=== PATIENT | male | born 1955 | race Caucasian/White ===

== ENCOUNTER 2021-12-22 18:19 | Emergency (ER) | payer MEDICARE, SELFPAY ==
--- NOTE | ~2021-12-22 | CT_ITS ---
EXAMINATION: CT HEAD WITHOUT CONTRAST CLINICAL INFORMATION: Altered mental status COMPARISON: 03/26/2019 TECHNIQUE: Contiguous axial imaging was performed from the skull base to vertex without intravenous administration of contrast. This CT examination was performed using dose optimization techniques as appropriate, variously including the following: *Automated exposure control *Adjustment of mA and/or kV according to patient size (this includes techniques or standardized protocols for targeted exams where dose is matched to indication/reason for exam; i.e. extremities or head) *Use of iterative reconstruction technique DLP: 777 mGy-cm FINDINGS: There is no evidence of acute intracranial hemorrhage or territorial infarction. No abnormal mass effect or midline shift is seen. Garcia to white matter differentiation is well preserved. No extra-axial fluid collections are identified. The ventricles are normal in size. 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 The osseous structures and soft tissues are normal. The mastoid air cells and visualized portions of the paranasal sinuses are well aerated. CT/CT head/brain wo con IMPRESSION: No acute intracranial pathology.
--- NOTE | 2021-12-22 18:22 | ED_ITS ---
HPI - Altered Mental Status General Chief Complaint: General Medical <Mau Haley MD - Last Filed: 12/22/21 20:25> Stated Complaint: confusion <Mau Haley MD - Last Filed: 12/22/21 20:25> Time Seen by Provider: 12/22/21 18:22 <Mau Haley MD - Last Filed: 12/22/21 20:25> Source: EMS <Mau Haley MD - Last Filed: 12/22/21 20:25> Mode of arrival: EMS <Mau Haley MD - Last Filed: 12/22/21 20:25> Limitations: altered mental status <Mau Haley MD - Last Filed: 12/22/21 20:25> History of Present Illness HPI narrative: patient is at a SNF and EMS was called for confusion. patient with a history of alcohol dementia and seizure. There was not witnessed seizure today. <Mau Haley MD - Last Filed: 12/22/21 20:25> MD complaint: altered mental status and confusion <Mau Haley MD - Last Filed: 12/22/21 20:25> Onset (ago): hour(s) <Mau Haley MD - Last Filed: 12/22/21 20:25> Timing confirmed by: other (senior care staff) <Mau Haley MD - Last Filed: 12/22/21 20:25> Severity: moderate <Mau Haley MD - Last Filed: 12/22/21 20:25> Context: alcohol abuse and seizure disorder <Mau Haley MD - Last Filed: 12/22/21 20:25> Related Data Allergies/Adverse Reactions: Allergies Allergy/AdvReac Type Severity Reaction Status Date / Time No Known Allergies Allergy Unverified 04/11/20 19:41 [No Known Allergies*] <Mau Haley MD - Last Filed: 12/22/21 20:25> Review of Systems Constitutional: Constitutional: Reports no additional constitutional complaints <Mau Haley MD - Last Filed: 12/22/21 20:25> Eyes: Eyes: Reports no additional eye complaints <Mau Haley MD - Last Filed: 12/22/21 20:25> ENT: Denies dizziness <Mau Haley MD - Last Filed: 12/22/21 20:25> Cardiovascular: Cardiovascular: Reports no additional cardiovascular complaints <Mau Haley MD - Last Filed: 12/22/21 20:25> Respiratory: Respiratory: Reports as per HPI <Mau Haley MD - Last Filed: 12/22/21 20:25> Gastrointestinal: Gastrointestinal: Reports no additional gastrointestinal complaints <Mau Haley MD - Last Filed: 12/22/21 20:25> Musculoskeletal: Musculoskeletal: Reports no additional musculoskeletal complaints <Mau Haley MD - Last Filed: 12/22/21 20:25> Integumentary/Breasts: Skin/Breast: Denies rash <Mau Haley MD - Last Filed: 12/22/21 20:25> Neurologic: Reports system reviewed and no additional complaints, except as documented, Denies dizziness and Denies Sensory deficit (Neuro) <Mau Haley MD - Last Filed: 12/22/21 20:25> Psychiatric: Psychiatric: Denies anxiety <Mau Haley MD - Last Filed: 12/22/21 20:25> [facility] Social History Social History: Social History Advance Directives: No Advance Directives Information Provided: No <Mau Haley MD - Last Filed: 12/22/21 20:25> Physical Exam ED Vital Signs: Vital Signs - 24 hr 12/22/21 18:34 12/22/21 19:01 12/22/21 20:41 Temperature 98.6 F 99.7 F 98.1 F Pulse Rate 70 73 72 Respiratory Rate 18 16 20 Blood Pressure 157/76 H 170/81 H 164/86 H Pulse Oximetry 97 93 95 BMI result Body Mass Index 25.8 <Mau Haley MD - Last Filed: 12/22/21 20:25> Vital Signs - 24 hr 12/22/21 18:34 12/22/21 19:01 12/22/21 20:41 Temperature 98.6 F 99.7 F 98.1 F Pulse Rate 70 73 72 Respiratory Rate 18 16 20 Blood Pressure 157/76 H 170/81 H 164/86 H Pulse Oximetry 97 93 95 BMI result Body Mass Index 25.8 <Lizbet Davis MD - Last Filed: 12/22/21 22:12> Const General: healthy appearing <Mau Haley MD - Last Filed: 12/22/21 20:25> Nutritional Appearance: average body habitus <Mau Haley MD - Last Filed: 12/22/21 20:25> Orientation/consciousness: oriented to person <Mau Haley MD - Last Filed: 12/22/21 20:25> Limitations: no limitations <Mau Haley MD - Last Filed: 12/22/21 20:25> HENMT Head: Yes normal to inspection <Mau Haley MD - Last Filed: 12/22/21 20:25> Ears: external ears normal <Mau Haley MD - Last Filed: 12/22/21 20:25> General nose exam: Normal external nose present <Mau Haley MD - Last Filed: 12/22/21 20:25> Mouth: Normal oral and palatal mucosa present and oropharynx normal <Mau Haley MD - Last Filed: 12/22/21 20:25> Throat: Yes posterior oropharynx normal <Mau Haley MD - Last Filed: 12/22/21 20:25> Eyes General: appearance normal, both eyes and all related structures <Mau Haley MD - Last Filed: 12/22/21 20:25> Neck Neck: Yes normal visual inspection <Mau Haley MD - Last Filed: 12/22/21 20:25> Chest Chest palpation & inspection: normal inspection of the chest <Mau Haley MD - Last Filed: 12/22/21 20:25> Resp Auscultation: clear to auscultation bilaterally <Mau Haley MD - Last Filed: 12/22/21 20:25> Cardio Jugular venous distension: no JVD <Mau Haley MD - Last Filed: 12/22/21 20:25> Rate: regular rate <Mau Haley MD - Last Filed: 12/22/21 20:25> Rhythm: regular rhythm <Mau Haley MD - Last Filed: 12/22/21 20:25> Heart sounds: S1 normal heart sound present and S2 normal heart sound present <Mau Haley MD - Last Filed: 12/22/21 20:25> GI Inspection: Yes normal to inspection <Mau Haley MD - Last Filed: 12/22/21 20:25> Palpation (GI): Soft to palpation, nontender and No hepatosplenomegaly present <Mau Haley MD - Last Filed: 12/22/21 20:25> Auscultation: normal bowel sounds <Mau Haley MD - Last Filed: 12/22/21 20:25> General: Yes no CVA tenderness <Mau Haley MD - Last Filed: 12/22/21 20:25> Back/Spine/Pelvis Back: no CVA tenderness <Mau Haley MD - Last Filed: 12/22/21 20:25> Skin General skin exam: no rashes or lesions noted <Mau Haley MD - Last Filed: 12/22/21 20:25> Neuro General: oriented to person <Mau Haley MD - Last Filed: 12/22/21 20:25> Cranial nerves: Yes CN's II-XII intact bilaterally <Mau Haley MD - Last Filed: 12/22/21 20:25> Motor exam (neuro): 5/5 motor strength present throughout <Mau Haley MD - Last Filed: 12/22/21 20:25> Sensory Exam: No Sensory deficit (Neuro) <Mau Haley MD - Last Filed: 12/22/21 20:25> Extrem General: Yes normal to inspection <Mau Haley MD - Last Filed: 12/22/21 20:25> Psych Other: patient knows he is in a hospital, does not know what facility he is in. States that he has had problems with his memory <Mau Haley MD - Last Filed: 12/22/21 20:25> Course Reevaluation(s) Reevaluation #1: head CT and labs normal, awaiting UA, patient appears to be improving will dc home if UA negative <Mau Haley MD - Last Filed: 12/22/21 20:25> Time: 20:25 <Mau Haley MD - Last Filed: 12/22/21 20:25> Reevaluation #2: Patient was signed out to me and on review of all investigations to inclu de urinalysis there are no acute findings to better explain patient's condition other than underlying alcohol dementia. Patient is otherwise hemodynamically stable for transportation back to the SNF. <Lizbet Davis MD - Last Filed: 12/22/21 22:12> Time: 22:10 <Lizbte Davis MD - Last Filed: 12/22/21 22:12> MDM - Altered Mental Status Lab Data Result diagrams: : 12/22/21 19:09 12/22/21 19:09 <Mau Haley MD - Last Filed: 12/22/21 20:25> Labs: Lab Results 12/22/21 12/22/21 12/22/21 Range/Units 19:09 19:09 21:56 WBC 9.6 (4.8-10.8) X10*3/uL RBC 4.73 (4.60-5.80) X10*6/uL Hgb 14.1 (14.0-18.0) g/dl Hct 42.2 (42.0-52.0) % MCV 89.2 (80.0-98.0) fL MCH 29.8 (27.0-33.0) pg MCHC 33.4 (31.0-36.0) g/dl RDW 11.7 (11.0-16.0) % Plt Count 286 (160-400) X10*3/uL MPV 10.1 (9.4-12.4) fL Immature Gran % (Auto) 0.3 (0.0-0.4) % Neut % (Auto) 81.3 H (45-73) % Lymph % (Auto) 14.1 L (20-40) % [place] % (Auto) 4.1 (2-11) % Eos % (Auto) 0.0 (0-4) % Baso % (Auto) 0.2 (0-2) % Lymph # (Auto) 1.4 (1.2-4.9) X10*3/uL [place] # (Auto) 0.4 (0.1-1.2) X10*3/uL Eos # (Auto) 0.0 (0.0-0.4) X10*3/uL Baso # (Auto) 0.0 (0.0-0.2) X10*3/uL Abs Immat Gran (auto) 0.03 (0.00-0.03) X10*3/uL Absolute Neuts (auto) 7.8 (2.0-8.3) x10*3/uL Absolute Nucleated RBC 0.000 (0.0-0.012) X10*3/uL Nucleated RBC % (auto) 0.0 (0.0-0.2) /100WBC Sodium 137 (135-145) mmol/L Potassium 4.6 (3.3-5.1) mmol/L Chloride 101 (96-108) mmol/L Carbon Dioxide 24 (22-29) mmol/L Anion Gap 17 (12-20) BUN 11 (9-16) mg/dL Creatinine 1.06 (0.5-1.4) mg/dL Estim Creat Clear Calc 65.4 Estimated GFR > 60 Random Glucose 156 H (60-115) mg/dL Calcium 9.9 (8.4-10.2) mg/dL Total Bilirubin 0.7 (0.0-1.0) mg/dL AST 22 (5-37) U/L ALT 24 (0-40) U/L Alkaline Phosphatase 63 (39-117) U/L Total Protein 6.9 (6.5-8.0) g/dL Albumin 4.1 (3.5-5.0) g/dL Urine Color YELLOW Urine Appearance CLEAR Urine pH 7.0 (5.0-8.0) Ur Specific [place] 1.010 (1.005-1.025) Urine Protein NEG (NEG-TRACE) MG/DL Urine Glucose (UA) NEG (NEG) MG/DL Urine Ketones NEG (NEG) MG/DL Urine Blood NEG (NEG) Urine Nitrite NEG (NEG) Ur Leukocyte Esterase NEG (NEG) <Mau Haley MD - Last Filed: 12/22/21 20:25> Lab Results 12/22/21 12/22/21 12/22/21 Range/Units 19:09 19:09 21:56 WBC 9.6 (4.8-10.8) X10*3/uL RBC 4.73 (4.60-5.80) X10*6/uL Hgb 14.1 (14.0-18.0) g/dl Hct 42.2 (42.0-52.0) % MCV 89.2 (80.0-98.0) fL MCH 29.8 (27.0-33.0) pg MCHC 33.4 (31.0-36.0) g/dl RDW 11.7 (11.0-16.0) % Plt Count 286 (160-400) X10*3/uL MPV 10.1 (9.4-12.4) fL Immature Gran % (Auto) 0.3 (0.0-0.4) % Neut % (Auto) 81.3 H (45-73) % Lymph % (Auto) 14.1 L (20-40) % [place] % (Auto) 4.1 (2-11) % Eos % (Auto) 0.0 (0-4) % Baso % (Auto) 0.2 (0-2) % Lymph # (Auto) 1.4 (1.2-4.9) X10*3/uL [place] # (Auto) 0.4 (0.1-1.2) X10*3/uL Eos # (Auto) 0.0 (0.0-0.4) X10*3/uL Baso # (Auto) 0.0 (0.0-0.2) X10*3/uL Abs Immat Gran (auto) 0.03 (0.00-0.03) X10*3/uL Absolute Neuts (auto) 7.8 (2.0-8.3) x10*3/uL Absolute Nucleated RBC 0.000 (0.0-0.012) X10*3/uL Nucleated RBC % (auto) 0.0 (0.0-0.2) /100WBC Sodium 137 (135-145) mmol/L Potassium 4.6 (3.3-5.1) mmol/L Chloride 101 (96-108) mmol/L Carbon Dioxide 24 (22-29) mmol/L Anion Gap 17 (12-20) BUN 11 (9-16) mg/dL Creatinine 1.06 (0.5-1.4) mg/dL Estim Creat Clear Calc 65.4 Estimated GFR > 60 Random Glucose 156 H (60-115) mg/dL Calcium 9.9 (8.4-10.2) mg/dL Total Bilirubin 0.7 (0.0-1.0) mg/dL AST 22 (5-37) U/L ALT 24 (0-40) U/L Alkaline Phosphatase 63 (39-117) U/L Total Protein 6.9 (6.5-8.0) g/dL Albumin 4.1 (3.5-5.0) g/dL Urine Color YELLOW Urine Appearance CLEAR Urine pH 7.0 (5.0-8.0) Ur Specific [place] 1.010 (1.005-1.025) Urine Protein NEG (NEG-TRACE) MG/DL Urine Glucose (UA) NEG (NEG) MG/DL Urine Ketones NEG (NEG) MG/DL Urine Blood NEG (NEG) Urine Nitrite NEG (NEG) Ur Leukocyte Esterase NEG (NEG) <Lizbet Davis MD - Last Filed: 12/22/21 22:12> Imaging Data CT scan - head: Radiologist's impression: FINDINGS: There is no evidence of acute intracranial hemorrhage or territorial infarction. No abnormal mass effect or midline shift is seen. Garcia to white matter differentiation is well preserved. No extra-axial fluid collections are identified. The ventricles are normal in size. 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 The osseous structures and soft tissues are normal. The mastoid air cells and visualized portions of the paranasal sinuses are well aerated. ? CT/CT head/brain wo con IMPRESSION: No acute intracranial pathology. <Mau Haley MD - Last Filed: 12/22/21 2 0:25> Discharge Plan Discharge Clinical Impression: Alcoholic dementia <Mau Haley MD - Last Filed: 12/22/21 20:25> Patient Disposition: er [facility] <Mau Haley MD - Last Filed: 12/22/21 20:25> Instructions: Dementia (ED) <Mau Haley MD - Last Filed: 12/22/21 20:25> Additional Instructions: Resume all home medications as prescribed. Return to the ER for worsening symptoms. <Mau Haley MD - Last Filed: 12/22/21 20:25> Referrals: Damon Muniz MD [Primary Care Provider] - <Mau Haley MD - Last Filed: 12/22/21 20:25>
[2021-12-22 18:34] VITALS: BP 157/76; BP 162/76; PULSE 70; RESP 18; TEMP 37; O2SAT 97; BMI 25.8
[2021-12-22 19:01] VITALS: BP 170/81; PULSE 73; RESP 16; TEMP 37.6; O2SAT 93
[2021-12-22 19:14] LABS: MANUAL DIFF FLAG NO
[2021-12-22 19:28] LABS: Basophils Percent Auto 0.2 % (0-2); Hematocrit 42.2 % (42.0-52.0); Hemoglobin 14.1 g/dl (14.0-18.0); Imm Gran Abs Auto 0.03 X10*3/uL (0.00-0.03); Imm Gran Pct Auto 0.3 % (0.0-0.4); Lymphocytes Absolute Auto 1.4 X10*3/uL (1.2-4.9); Lymphocytes Percent Auto 14.1 % (20-40); Mean Corpuscular HGB Conc 33.4 g/dl (31.0-36.0); Mean Corpuscular Hemoglobin 29.8 pg (27.0-33.0); Mean Corpuscular Volume 89.2 fL (80.0-98.0); Mean Platelet Volume 10.1 fL (9.4-12.4); Monocytes Absolute Auto 0.4 X10*3/uL (0.1-1.2); Monocytes Percent Auto 4.1 % (2-11); Neutrophils Absolute Auto 7.8 x10*3/uL (2.0-8.3); Neutrophils Percent Auto 81.3 % (45-73); Platelet Count 286 X10*3/uL (160-400); Red Blood Count 4.73 X10*6/uL (4.60-5.80); Red Cell Distribution Width 11.7 % (11.0-16.0); White Blood Count 9.6 X10*3/uL (4.8-10.8)
[2021-12-22 19:33] LABS: Alanine Aminotransferase 24 U/L (0-40); Albumin Level 4.1 g/dL (3.5-5.0); Alkaline Phosphatase 63 U/L (39-117); Anion Gap 17 (12-20); Aspartate Amino Transferase 22 U/L (5-37); Bilirubin Total 0.7 mg/dL (0.0-1.0); Blood Urea Nitrogen 11 mg/dL (9-16); Calcium 9.9 mg/dL (8.4-10.2); Carbon Dioxide 24 mmol/L (22-29); Chloride 101 mmol/L (96-108); Creatinine Clr Calc Pharmacy 65.4; Estimated Glomerular Filt Rate > 60; Glucose Random 156 mg/dL (60-115); Potassium 4.6 mmol/L (3.3-5.1); Sodium 137 mmol/L (135-145); Total Protein 6.9 g/dL (6.5-8.0)
[2021-12-22 20:41] VITALS: BP 164/86; PULSE 72; RESP 20; TEMP 36.7; O2SAT 95
[2021-12-22 22:05] LABS: Appearance Urine CLEAR; Color Urine YELLOW; Glucose Urine UA NEG (NEG); Leukocyte Esterase Urine NEG (NEG); Nitrite Urine NEG (NEG); Urine Blood NEG (NEG); Urine Ketones NEG (NEG); Urine Protein NEG (NEG-TRACE)
--- NOTE | 2021-12-22 23:55 | PC.NURSE ---
Nursing report given to staff member who answered the phone at [facility]. who verbalized an understanding of the [patient returning.
== END 2021-12-22 23:59 | disposition skilled nursing facility (03) ==
PROVIDERS: Emergency Provider Emergency Medicine; PCP Internal Medicine
DX: F10.97 Alcohol use, unspecified with alcohol-induced persisting dementia (principal); Y90.9 Presence of alcohol in blood, level not specified; R41.0 Disorientation, unspecified; R56.9 Unspecified convulsions; Z79.899 Other long term (current) drug therapy
CPT/HCPCS: 36415; 70450; 80053; 81003; 85025; 99284